=== PATIENT | female | born 1950 ===

== ENCOUNTER 2025-07-22 10:00 | Day surgery (SDC) | payer OTHER ==
[2025-07-12 10:41] VITALS: BP 122/71
[2025-07-12 11:38] LABS: BASO % 0.8 % (0.1-1.2); EOS # 0.02 (0.04-0.54); EOS % 0.5 % (0.7-7.0); LYMPH # 1.59 (1.18-3.74); LYMPH % 39.9 % (19.3-53.1); MEAN PLATELET VOLUME 9.40 fl (9.4-12.4); MONO # 0.36 (0.24-0.82); MONO % 9.0 % (4.7-12.5); NEUT # 1.97 (1.56-6.13); NEUT % 49.5 % (34.0-71.1); RED CELL DISTRIBUTION WIDTH 12.3 % (11.6-14.4)
[2025-07-12 12:11] LABS: ALT/SGPT 26.0 U/L (12-78); AST/SGOT 19.0 U/L (15-37); BILIRUBIN TOTAL 0.69 mg/dL (0.3-1.2); BUN CREA RATIO 25.0 (7.0-25.0); CREATININE SERUM 0.67 mg/dL (0.55-1.02); GFR 86.04; GLOBULINA 3.1 G/DL (2.4-3.5); GLUCOSE FASTING 86.0 mg/dL (65-100); OSMOLALITY SERUM 290.0 MOSM/KG (275-295)
[2025-07-12 12:18] LABS: INR 1.04
[~2025-07-22] VITALS: Ht 154.9 cm; Wt 54.4 kg
[~2025-07-22 10:00] MED LIST: DICLOFENAC POTA50 MG PO; LONITEN2.5 MG; MICARDIS40 MG; NORFLEX100MG PO; SUGAMMADEX SODIUM 200 MG/2 ML VIAL IV ONE; TOPROL XL25 M1
== END 2025-07-22 11:40 | disposition home or self-care (01) ==
LOC: CIR.AMB 10:00
PROVIDERS: ATTEND Internal Medicine
DX: K86.2 Cyst of pancreas (principal); R93.2 Abnormal findings on diagnostic imaging of liver and biliary tract; R93.5 Abnormal findings on diagnostic imaging of other abdominal regions, including retroperitoneum